=== PATIENT | male | born 1940 | race Caucasian/White ===

== ENCOUNTER → 2017-11-25 | Outpatient (CLI) | payer OTHER | END | disposition home or self-care (01) | LOC: C.PATHSPEC 17:01 | PROVIDERS: ATTEND Physician Assistant | DX: D04.61 Carcinoma in situ of skin of right upper limb, including shoulder (principal); L57.0 Actinic keratosis; L57.8 Other skin changes due to chronic exposure to nonionizing radiation ==

== ENCOUNTER → 2018-02-01 | Outpatient (CLI) | payer OTHER | END | disposition home or self-care (01) | LOC: C.PATHSPEC 18:02 | PROVIDERS: ATTEND Plastic Surgery | DX: C44.622 Squamous cell carcinoma of skin of right upper limb, including shoulder (principal); C44.329 Squamous cell carcinoma of skin of other parts of face ==